=== PATIENT | male | born 1960 | race Caucasian/White ===

== ENCOUNTER 2019-03-24 21:17 | Inpatient (IN) | payer OTHER ==
--- NOTE | 2019-03-24 22:05 | PDOC ---
Attending Attestation - Resident Resident Name: SofiyaAna - ED Attending Attestation I have performed the following: I have examined & evaluated the patient, The case was reviewed & discussed with the resident, I agree w/resident's findings & plan - HPI HPI: 03/25/19 01:28 see resident hpi - Physicial Exam PE: 03/25/19 01:28 agree with resident exam - Medical Decision Making 03/25/19 01:28 58 yo male with history of dementia and increased confusion ct scan, ekg, labs plan for admit for further evaluation and observation
--- NOTE | 2019-03-24 22:25 | PDOC ---
History of Present Illness - General Chief Complaint: Altered Mental Status Stated Complaint: ALTERED MENTAL STATUS Time Seen by Provider: 03/24/19 21:56 History Source: Patient, Assisted Records Exam Limitations: Dementia - History of Present Illness Initial Comments: 03/24/19 22:30 58yo M with PMH of HTN, HLD, Dementia, Rib Fractures [facility] from [facility] for Independent and Assisted Living for AMS. Per note, patient is usually forgetful but has been more forgetful today. Patient states that he does not know where he is, why he is here and says that no one is answering his questions. Patient was provided answers as to why he is here but continues to ask, forgetting the answers to the questions. He denies headache, abdominal pain , n/v/d, changes in vision, back pain. PMD: Delmis PMH: see hpi PSH: L hip replacement 2008, Schatzki's Ring balloon 2014, Meds: Amlodipine 5mg, Aricept 10mg, Carvadilol 6.25mig BID, atorvastatin 40mg, lisinopril 10mg Allergies: nkda 03/25/19 01:35 Past History - Past Medical History Allergies/Adverse Reactions: Allergies Allergy/AdvReac Type Severity Reaction Status Date / Time No Known Allergies Allergy Verified 03/25/19 02:55 Home Medications: Ambulatory Orders Amlodipine Besylate [Norvasc -] 5 mg PO DAILY 03/25/19 Atorvastatin Ca [Lipitor] 40 mg PO HS 03/25/19 Carvedilol 6.25 mg PO BID 03/25/19 Donepezil HCl [Aricept] 10 mg PO DAILY 03/25/19 Lisinopril 10 mg PO DAILY 03/25/19 Review of Systems - Review of Systems Constitutional: No: Chills, Fever HEENTM: No: Symptoms Reported Respiratory: No: Cough, Shortness of Breath Cardiac (ROS): No: Chest Pain ABD/GI: No: Symptoms Reported, Nausea, Vomiting : No: Symptoms Reported Musculoskeletal: No: Symptoms Reported Integumentary: No: Symptoms Reported Neurological: No: Symptoms reported *Physical Exam - Physical Exam General Appearance: Yes: Nourished, Appropriately Dressed. No: Apparent Distress HEENT: positive: EOMI, NEIL, Normal ENT Inspection, Other (poor dentition) Neck: positive: Trachea midline, Supple. negative: Carotid bruit, Lymphadenopathy (R), Lymphadenopathy (L) Respiratory/Chest: positive: Lungs Clear, Normal Breath Sounds. negative: Crackles, Rales, Rhonchi, Stridor, Wheezing Cardiovascular: positive: Regular Rhythm, Regular Rate, S1, S2. negative: Edema , JVD, Murmur Vascular Pulses: Dorsalis-Pedis (R): 2+, Doralis-Pedis (L): 2+ Gastrointestinal/Abdominal: positive: Normal Bowel Sounds, Soft. negative: Tender Musculoskeletal: negative: CVA Tenderness Extremity: positive: Normal Capillary Refill. negative: Swelling, Calf Tenderness, Erythema Integumentary: positive: Normal Color, Dry, Warm Neurologic: positive: sr risk management consultant II-XII NML intact, Alert, Normal Mood/Affect, Motor Strength 5/5, Other (normal gait. forgetful). negative: Fully Oriented (AOx2) ED Treatment Course - LABORATORY CBC & Chemistry Diagram: 03/25/19 18:30 03/24/19 22:54 - RADIOLOGY Radiology Studies Ordered: Category Date Time Status CHEST X-RAY PORTABLE* [RAD] Stat Radiology 03/24/19 21:57 Ordered Medical Decision Making - Medical Decision Making 03/24/19 23:39 58yo M with PMH of dementia, hth, hld presenting for acute onset of ams/ confusion. ddx includes but not limited to infection, cva/tia, encephalitis, meningitis, hypo/hyperglycemia, electrolyte abnormality, mass/malignancy, substance use, intracranial bleed, hydrocephalus. will order labs, ua, ucx, cxr, ekg, ct head. ct head does not show acute pathology. labs show leukocytosis otherwise wnl. ua negative for infection. ekg: nsr at 69bpm, pr 166, qtc 427. no manuel or depressions. twi avL. no prior sto compare to. no signs of acute ischemia. pt has profound short term memory loss. will admit pt for ams. accepted by hospitalist. Discharge - Discharge Information Problems reviewed: Yes Clinical Impression/Diagnosis: Altered mental state Condition: Improved - Admission Yes - Follow up/Referral - Patient Discharge Instructions - Post Discharge Activity
[2019-03-24 23:01] LABS: BASO % 1.3 % (0-2.0); EOS % 1.8 % (0-4.5); HEMATOCRIT 41.8 % (35.4-49); HEMOGLOBIN 13.8 GM/dL (11.7-16.9); LYMPH % 22.5 % (8-40); MCH 31.3 pg (25.7-33.7); MEAN CELL VOLUME 94.8 fl (80-96); MEAN PLT VOLUME 7.2 fl (7.5-11.1); MONO % 9.5 % (3.8-10.2); NEUT % 64.9 % (42.8-82.8); PLATELET COUNT 258 K/MM3 (134-434); RBC 4.41 M/mm3 (4.00-5.60); RDW 14.1 % (11.9-15.9); WHITE BLOOD COUNT 12.2 K/mm3 (4.0-10.0)
[2019-03-24 23:05] LABS: URINE APPEARANCE CLEAR; URINE BILIRUBIN NEGATIVE (NEGATIVE); URINE COLOR YELLOW; URINE GLUCOSE (UA) NEGATIVE (NEGATIVE); URINE KETONE NEGATIVE (NEGATIVE); URINE LEUK ESTERASE NEGATIVE (NEGATIVE); URINE NITRITE NEGATIVE (NEGATIVE); URINE PROTEIN NEGATIVE (NEGATIVE); URINE UROBILINOGEN 0.2 mg/dL (0.2-1.0)
[2019-03-24 23:14] LABS: INR 1.05 (0.83-1.09); PROTHROMBIN TIME (PATIENT) 12.4 SEC (9.7-13.0)
[2019-03-24 23:30] LABS: ALBUMIN 4.2 g/dl (3.4-5.0); BILIRUBIN,TOTAL 0.6 mg/dL (0.2-1); BLOOD UREA NITROGEN 9.8 mg/dL (7-18); CALCIUM 9.5 mg/dL (8.5-10.1); CREATININE 0.6 mg/dL (0.55-1.3); POTASSIUM 4.9 mmol/L (3.5-5.1); TOT PROT 7.6 g/dl (6.4-8.2)
--- NOTE | 2019-03-25 02:14 | PN ---
Teaching Attending Note Name of Resident: Richelle Riggs ATTENDING PHYSICIAN STATEMENT I saw and evaluated the patient. I reviewed the resident's note and discussed the case with the resident. I agree with the resident's findings and plan as documented. SUBJECTIVE: Patient is a 58 year old man with PMH of HTN, HLD, Dementia, Rib Fractures brought by EMS from [facility] for Independent and Assisted Living for AMS. Per note, patient is usually forgetful but has been more forgetful today. Patient states that he does not know where he is, why he is here and says that no one is answering his questions. Patient was provided answers as to why he is here but continues to ask, forgetting the answers to the questions. He denies headache, abdominal pain, nausea, vomiting, diarrhea, changes in vision and back pain. OBJECTIVE: HEENT: No Jaundice, eye redness or discharge, PERRLA, EOMI. Normocephalic, atraumatic. External ears are normal and hearing is grossly intact. No nasal discharge. Neck: Supple, nontender. No palpable adenopathy or thyromegaly. No JVD Chest: Good effort. Clear to auscultation and percussion. Heart: Regular. No S3, rub or murmur Abdomen: Not distended, soft, nontender and no HSM. No rebound or guarding. Normal bowel sounds. Ext: Peripheral pulses intact. No leg edema. Skin: Warm and dry. No petechiae, rash or ecchymosis. Neuro: Alert. Confused. Oriented to person. CN 2-12 grossly intact. Sensation grossly intact in all four extremities and DTR are symmetric. Psych: Appropriate mood and affect. Good insight. Abnormal Lab Results 03/24/19 03/24/19 03/24/19 22:54 22:54 23:00 WBC 12.2 H MPV 7.2 L Anion Gap 7 L Ur Specific [place] 1.009 L ASSESSMENT AND PLAN: 1. AMS - Cause unclear and head CT scan didnot show any acute abnormality. Has leucoytosis but no left shift or obvious source of infection. No acute abnormality on CXR. EKG shows NSR with t wave inversion in aVL and initial troponin is negative. No old EKG available for comparison. Will repeat EKG. He may also have acute delirium superimposed on dementia. Will get blood cultures, repeat CBC STAT and get a rectal temperature - will get a spinal tap if leukocytosis is worse or he becomes febrile. Consult neurology. Will continue comprehensive care for all of patients comorbid conditions including dementia. 2. Hypertension - Restart suitable outpatient antihypertensive drugs when clinically appropriate. Revise regimen to ensure [id number] excellent BP control and counseling psychologist patient on the injurious effects of uncontrolled hypertension. Nonpharmacologic measures to control hypertension like weight loss , salt restriction and exercise discussed. Importance of adherence to treatment regimen and attainment of normotension emphasized. 3. DVT prophylaxis - Lovenox 40 mg SQ q 24 hours. 4. Advance directives - Full code
--- NOTE | 2019-03-25 03:09 | HP ---
CHIEF COMPLAINT: PCP: Dr. Benites HISTORY OF PRESENT ILLNESS: 58 y/o/m from [facility] for independent and assisted living sent here via EMS for confusion. Patient is a poor historian, AAOx1 to self. Patient's repeatedly asking "Why am I here?" As per the [facility] the patient is not at baseline, there have been no incidences at [facility], no changes in medication. Of note his father recently and his estate was settled, patient seems to be concerned regarding this, repeatedly asking about his fathers will. Patient at one point mentioned "Just off me, I don't know why I'm dealing with this." When specifically asked about any SI/HI, he denies. ER course was notable for: (1) CT head - negative for acute pathology Recent Travel: none PAST MEDICAL HISTORY: HTN, HLD, dementia, Rib fractures PAST SURGICAL HISTORY: L-Hip replacement 2008, Schatzki Ring balloon 2014 Social History: Smoking: smokes 1 pack of cigarettes daily Alcohol: unknown Drugs: unknown Allergies No Known Allergies Allergy (Verified 03/25/19 02:55) HOME MEDICATIONS: REVIEW OF SYSTEMS Patient is a poor historian, denying all complaints. CONSTITUTIONAL: Absent: fever, chills, diaphoresis, generalized weakness, malaise, loss of appetite, weight change HEENT: Absent: rhinorrhea, nasal congestion, throat pain, throat swelling, difficulty swallowing, mouth swelling, ear pain, eye pain, visual changes CARDIOVASCULAR: Absent: chest pain, syncope, palpitations, irregular heart rate, lightheadedness , peripheral edema RESPIRATORY: Absent: cough, shortness of breath, dyspnea with exertion, orthopnea, wheezing, stridor, hemoptysis GASTROINTESTINAL: Absent: abdominal pain, abdominal distension, nausea, vomiting, diarrhea, constipation, melena, hematochezia GENITOURINARY: Absent: dysuria, frequency, urgency, hesitancy, hematuria, flank pain, genital pain MUSCULOSKELETAL: Absent: myalgia, arthralgia, joint swelling, back pain, neck pain SKIN: Absent: rash, itching, pallor HEMATOLOGIC/IMMUNOLOGIC: Absent: easy bleeding, easy bruising, lymphadenopathy, frequent infections ENDOCRINE: Absent: unexplained weight gain, unexplained weight loss, heat intolerance, cold intolerance NEUROLOGIC: Absent: headache, focal weakness or paresthesias, dizziness, unsteady gait, seizure, mental status changes, bladder or bowel incontinence PSYCHIATRIC: Absent: anxiety, depression, suicidal or homicidal ideation, hallucinations. PHYSICAL EXAMINATION Vital Signs - 24 hr 03/24/19 21:25 Temperature 98.2 F Pulse Rate 90 Respiratory 18 Rate Blood Pressure 145/64 O2 Sat by Pulse 97 Oximetry (%) GENERAL: Awake, alert, and fully oriented, in no acute distress. HEAD: Normal with no signs of trauma. 2 small 1cm nontender, mobile, hard bumps on posterior aspect of skull EYES: Pupils equal, round and reactive to light, extraocular movements intact, sclera anicteric, conjunctiva clear. No lid lag. EARS, NOSE, THROAT: Ears normal, nares patent, oropharynx clear without exudates. Dry mucous membranes. Poor oral dentition NECK: Normal range of motion, supple without lymphadenopathy, JVD, or masses. negative brudzinski sign LUNGS: Breath sounds equal, clear to auscultation bilaterally. No wheezes, and no crackles. No accessory muscle use. HEART: Regular rate and rhythm, normal S1 and S2 without murmur, rub or gallop. ABDOMEN: Soft, nontender, not distended, normoactive bowel sounds, no guarding, no rebound, no masses. MUSCULOSKELETAL: Normal range of motion at all joints. No bony deformities or tenderness. No CVA tenderness. UPPER EXTREMITIES: 2+ pulses, warm, well-perfused. No cyanosis. No clubbing. No peripheral edema. LOWER EXTREMITIES: 2+ pulses, warm, well-perfused. No calf tenderness. No peripheral edema. NEUROLOGICAL: Cranial nerves II-XII intact. Normal speech. AAOx1 (self), 5/5 strength upper and lower extremities. Normal sensation. PSYCHIATRIC: Confused SKIN: Warm, dry, normal turgor, no rashes or lesions noted, normal capillary refill. Laboratory Results - last 24 hr 03/24/19 03/24/19 03/24/19 22:54 22:54 22:54 WBC 12.2 H RBC 4.41 Hgb 13.8 Hct 41.8 MCV 94.8 MCH 31.3 MCHC 33.0 RDW 14.1 Plt Count 258 MPV 7.2 L Absolute Neuts (auto) 7.9 Neutrophils % 64.9 Lymphocytes % 22.5 Monocytes % 9.5 Eosinophils % 1.8 Basophils % 1.3 Nucleated RBC % 0 PT with INR INR Sodium 138 Potassium 4.9 Chloride 104 Carbon Dioxide 27 Anion Gap 7 L BUN 9.8 Creatinine 0.6 Est GFR (CKD-EPI)AfAm 126.66 Est GFR (CKD-EPI)NonAf 109.28 Random Glucose 84 Calcium 9.5 Total Bilirubin 0.6 AST 24 ALT 24 Alkaline Phosphatase 79 Troponin I < 0.02 Total Protein 7.6 Albumin 4.2 Urine Color Urine Appearance Urine pH Ur Specific [place] Urine Protein Urine Glucose (UA) Urine Ketones Urine Blood Urine Nitrite Urine Bilirubin Urine Urobilinogen Ur Leukocyte Esterase 03/24/19 03/24/19 22:54 23:00 WBC RBC Hgb Hct MCV MCH MCHC RDW Plt Count MPV Absolute Neuts (auto) Neutrophils % Lymphocytes % Monocytes % Eosinophils % Basophils % Nucleated RBC % PT with INR 12.40 INR 1.05 Sodium Potassium Chloride Carbon Dioxide Anion Gap BUN Creatinine Est GFR (CKD-EPI)AfAm Est GFR (CKD-EPI)NonAf Random Glucose Calcium Total Bilirubin AST ALT Alkaline Phosphatase Troponin I Total Protein Albumin Urine Color Yellow Urine Appearance Clear Urine pH 7.0 Ur Specific [place] 1.009 L Urine Protein Negative Urine Glucose (UA) Negative Urine Ketones Negative Urine Blood Negative Urine Nitrite Negative Urine Bilirubin Negative Urine Urobilinogen 0.2 Ur Leukocyte Esterase Negative ASSESSMENT/PLAN: 58 y/o/m from [facility] independent and assisted living sent here via EMS for confusion. As per [facility] independent and assisted living patient is not at baseline. 1)Acute Metabolic Encephalopathy - patient sent by [facility] for confusion, not at baseline -Neuro consulted -Pysch consulted -Consider progressive dementia vs. infectious cause vs delirium -Utox, TSH ordered for further evaluation -Patient placed on constant supervision due to agitation 2)Leukocytosis - WHC of 12.2, patient afebrile -repeat CBC -if equivocal or uptrending, consider LP for possible infectious etiology -follow cultures 3)Prophylaxis -SCDs 4)Disposition -admitted to med/surg Visit type - Emergency Visit Emergency Visit: Yes ED Registration Date: 03/25/19 Care time: The patient presented to the Emergency Department on the above date and was hospitalized for further evaluation of their emergent condition. - New Patient This patient is new to me today: Yes Date on this admission: 03/25/19 - Critical Care Critical Care patient: No ATTENDING PHYSICIAN STATEMENT I saw and evaluated the patient. I reviewed the resident's note and discussed the case with the resident. I agree with the resident's findings and plan as documented. SUBJECTIVE: OBJECTIVE: ASSESSMENT AND PLAN:
--- NOTE | 2019-03-25 08:38 | PN ---
Teaching Attending Note Name of Resident: Marie Abraham ATTENDING PHYSICIAN STATEMENT I saw and evaluated the patient. I reviewed the resident's note and discussed the case with the resident. I agree with the resident's findings and plan as documented. SUBJECTIVE: Patient is comfortable with no acute distress, oriented to self only, does not know where he is. Sitter at bed side since patient is a wanderer at baseline. OBJECTIVE: Vital Signs Temperature 98.2 F 03/24/19 21:25 Pulse Rate 90 03/24/19 21:25 Respiratory Rate 18 03/24/19 21:25 Blood Pressure 145/64 03/24/19 21:25 O2 Sat by Pulse Oximetry (%) 97 03/24/19 21:25 GENERAL: The patient is awake, oriented to self only. in no acute distress. HEAD: Normal with no signs of trauma. EYES: PERRL, extraocular movements intact, sclera anicteric, conjunctiva clear. ENT: Ears normal, oropharynx clear without exudates, moist mucous membranes. NECK: Trachea midline, full range of motion, supple. LUNGS: Breath sounds equal, clear to auscultation bilaterally, no wheezes, no crackles, no accessory muscle use. HEART: Regular rate and rhythm, S1, S2 without murmur, rub or gallop. ABDOMEN: Soft, nontender, nondistended, normoactive bowel sounds, no guarding, no rebound, no hepatosplenomegaly, no masses. EXTREMITIES: 2+ pulses, warm, well-perfused, no edema. NEUROLOGICAL: Cranial nerves II through XII grossly intact. Normal speech, gait not observed. PSYCH: Normal mood, normal affect. SKIN: Warm, dry, normal turgor, no rashes or lesions noted CBCD WBC 12.2 K/mm3 (4.0-10.0) H 03/24/19 22:54 RBC 4.41 M/mm3 (4.00-5.60) 03/24/19 22:54 Hgb 13.8 GM/dL (11.7-16.9) 03/24/19 22:54 Hct 41.8 % (35.4-49) 03/24/19 22:54 MCV 94.8 fl (80-96) 03/24/19 22:54 MCHC 33.0 g/dl (32.0-35.9) 03/24/19 22:54 RDW 14.1 % (11.9-15.9) 03/24/19 22:54 Plt Count 258 K/MM3 (134-434) 03/24/19 22:54 MPV 7.2 fl (7.5-11.1) L 03/24/19 22:54 CMP Sodium 138 mmol/L (136-145) 03/24/19 22:54 Potassium 4.9 mmol/L (3.5-5.1) 03/24/19 22:54 Chloride 104 mmol/L (98-107) 03/24/19 22:54 Carbon Dioxide 27 mmol/L (21-32) 03/24/19 22:54 Anion Gap 7 MMOL/L (8-16) L 03/24/19 22:54 BUN 9.8 mg/dL (7-18) 03/24/19 22:54 Creatinine 0.6 mg/dL (0.55-1.3) 03/24/19 22:54 Random Glucose 84 mg/dL (74-106) 03/24/19 22:54 Calcium 9.5 mg/dL (8.5-10.1) 03/24/19 22:54 Total Bilirubin 0.6 mg/dL (0.2-1) 03/24/19 22:54 AST 24 U/L (15-37) 03/24/19 22:54 ALT 24 U/L (13-61) 03/24/19 22:54 Alkaline Phosphatase 79 U/L (45-117) 03/24/19 22:54 Total Protein 7.6 g/dl (6.4-8.2) 03/24/19 22:54 Albumin 4.2 g/dl (3.4-5.0) 03/24/19 22:54 CARDIAC ENZYMES Troponin I < 0.02 ng/ml (0.00-0.05) 03/24/19 22:54 Urine Test Results Urine Color Yellow 03/24/19 23:00 Urine Appearance Clear 03/24/19 23:00 Urine pH 7.0 (5.0-8.0) 03/24/19 23:00 Ur Specific [place] 1.009 (1.010-1.035) L 03/24/19 23:00 Urine Protein Negative (NEGATIVE) 03/24/19 23:00 Urine Glucose (UA) Negative (NEGATIVE) 03/24/19 23:00 Urine Ketones Negative (NEGATIVE) 03/24/19 23:00 Urine Blood Negative (NEGATIVE) 03/24/19 23:00 Urine Nitrite Negative (NEGATIVE) 03/24/19 23:00 Urine Bilirubin Negative (NEGATIVE) 03/24/19 23:00 Ur Leukocyte Esterase Negative (NEGATIVE) 03/24/19 23:00 Current Medications Generic Name Dose Route Start Last Admin Trade Name Lorraine PRN Reason Stop Dose Admin Amlodipine Besylate 5 mg 03/25/19 10:00 Norvasc - PO DAILY ERUM Atorvastatin Calcium 40 mg 03/25/19 22:00 Lipitor - PO HS [facility] Carvedilol 6.25 mg 03/25/19 10:00 Coreg - PO BID ERUM Donepezil HCl 10 mg 03/25/19 10:00 Aricept - PO DAILY ERUM Lisinopril 10 mg 03/25/19 10:00 Prinivil PO DAILY [facility] Home Medications Medication Instructions Recorded Amlodipine Besylate [Norvasc -] 5 mg PO DAILY 03/25/19 Atorvastatin Ca [Lipitor] 40 mg PO HS 03/25/19 Carvedilol 6.25 mg PO BID 03/25/19 Donepezil HCl [Aricept] 10 mg PO DAILY 03/25/19 Lisinopril 10 mg PO DAILY 03/25/19 CXR: no acute pathology CT of the head without contrast: negative ASSESSMENT AND PLAN: Patient is a 58 year old man with PMHx of HTN, HLD, Dementia, Rib Fractures brought by EMS from [facility] for Independent and Assisted Living for AMS. # Acute over chronic change of mental status with hx of Dementia r/o sepsis, dementia w/u b12,folic acid, ( NL mcv, normal h/h), tsh, # Acute leukocytosis : septic w/u , UA is negative #HTN: continue home norvasc #HLD;continue home lipitor #Dementia: on arisept continue DVT px:Lovenox sitter at bedside. patient is a wanderer. back to [facility] in [place] once seen by neuro
[2019-03-25] MEDS: DONEPEZIL HCL 10 MG TABLET (FP) PO SCH (10:58)
[2019-03-25] MEDS: ENOXAPARIN NA (PORCINE) 40 MG/0.4 ML DISP.SYRIN SQ SCH (10:59)
[2019-03-25] MEDS: CARVEDILOL 6.25 MG TABLET (FP) PO SCH ×2 (10:59→22:31)
[2019-03-25] MEDS: amLODIPine BESYLATE 5 MG TABLET (FP) PO SCH (11:08)
[2019-03-25] MEDS: LISINOPRIL 10 MG TABLET (FP) PO SCH (11:08)
--- NOTE | 2019-03-25 12:25 | CON.PSY ---
Psychiatry Consult Chief Complaint: Patient with Dementia admitted from a HOME. Seen for Psych eval. Symptoms: reports: Memory Impairment - Previous Psychiatric Treatment Outpatient: None Inpatient: None - Previous Substance Abuse Treatment Outpatient: None Inpatient: None - Current Medications Current Medications: Active Medications Amlodipine Besylate (Norvasc -) 5 mg PO DAILY [facility] Last Admin: 03/25/19 11:08 Dose: 5 mg Atorvastatin Calcium (Lipitor -) [address] [facility] Carvedilol (Coreg -) 6.25 mg PO BID [facility] Last Admin: 03/25/19 10:59 Dose: 6.25 mg Donepezil HCl (Aricept -) 10 mg PO DAILY [facility] Last Admin: 03/25/19 10:58 Dose: 10 mg Enoxaparin Sodium (Lovenox -) 40 mg SQ DAILY [facility] Last Admin: 03/25/19 10:59 Dose: 40 mg Lisinopril (Prinivil) 10 mg PO DAILY [facility] Last Admin: 03/25/19 11:08 Dose: 10 mg - Allergies Allergies: Allergies Allergy/AdvReac Type Severity Reaction Status Date / Time No Known Allergies Allergy Verified 03/25/19 02:55 - Current Living Status Usual Living Arrangement: Jail - Current Mental Status Evaluation Appearance: Disheveled Attitude: Guarded - Affect Affect: Constrictive Appropriateness: Not Appropriate - Mood Mood: Euthymic - Speech/Language Expressive: Delayed - Psychomotor Activity Psychomotor Activity: Slowed - Thought Process Thought Process: Circumstantial - Thought Content Hallucinations: Absent Delusions: Absent - Self Perception Self Perception: No Impairment - Cognition Attention: Diminished Memory, Immediate Recall: Impaired Memory, Short Term: 1/3 Memory, Remote with Promptin/3 - Concentration Serial Sevens Intact: No Simple Calculations Intact: No - Abstraction Proverb Interpretation: Impaired Judgement: Minimally Impaired - Insight Insight: Impaired - Impulse Control Impulse Control: Moderately Impaired - Suicidal Ideation Suicidal Ideation: No - Homicidal Ideation Homicidal Ideation: No Assessment/Plan 1) No Psych mEds. 2) discharge back to [facility] when medically stable.
--- NOTE | 2019-03-25 14:07 | EKG ---
Test Reason : Blood Pressure : / mmHG Vent. Rate : 068 BPM Atrial Rate : 068 BPM P-R Int : 166 ms QRS Dur : 088 ms QT Int : 402 ms P-R-T Axes : 067 -61 071 degrees QTc Int : 427 ms POOR DATA QUALITY, INTERPRETATION MAY BE ADVERSELY AFFECTED NORMAL SINUS RHYTHM LEFT ANTERIOR FASCICULAR BLOCK ABNORMAL ECG NO PREVIOUS ECGS AVAILABLE Confirmed by MICHELLE FARR, BUSTER ([id number]) on 03/25/2019 2:07:03 PM Referred By: Confirmed By:BUSTER MARTINEZ MD
--- NOTE | 2019-03-25 16:08 | PN ---
Physical Exam: SUBJECTIVE: Patient seen and examined OBJECTIVE: Vital Signs Period Temp Pulse Resp BP Sys/Knowles Pulse Ox Last 24 Hr 98.2 F-98.9 F 58-90 15-18 82-145/41-74 97 GENERAL: The patient is awake, alert, and fully oriented, in no acute distress. HEAD: Normal with no signs of trauma. EYES: PERRL, extraocular movements intact, sclera anicteric, conjunctiva clear. No ptosis. ENT: Ears normal, nares patent, oropharynx clear without exudates, moist mucous membranes. NECK: Trachea midline, full range of motion, supple. LUNGS: Breath sounds equal, clear to auscultation bilaterally, no wheezes, no crackles, no accessory muscle use. HEART: Regular rate and rhythm, S1, S2 without murmur, rub or gallop. ABDOMEN: Soft, nontender, nondistended, normoactive bowel sounds, no guarding, no rebound, no hepatosplenomegaly, no masses. EXTREMITIES: 2+ pulses, warm, well-perfused, no edema. NEUROLOGICAL: Cranial nerves II through XII grossly intact. Normal speech, gait not observed. PSYCH: Normal mood, normal affect. SKIN: Warm, dry, normal turgor, no rashes or lesions noted Laboratory Results - last 24 hr 03/24/19 03/24/19 03/24/19 22:54 22:54 22:54 WBC 12.2 H RBC 4.41 Hgb 13.8 Hct 41.8 MCV 94.8 MCH 31.3 MCHC 33.0 RDW 14.1 Plt Count 258 MPV 7.2 L Absolute Neuts (auto) 7.9 Neutrophils % 64.9 Lymphocytes % 22.5 Monocytes % 9.5 Eosinophils % 1.8 Basophils % 1.3 Nucleated RBC % 0 PT with INR INR Sodium 138 Potassium 4.9 Chloride 104 Carbon Dioxide 27 Anion Gap 7 L BUN 9.8 Creatinine 0.6 Est GFR (CKD-EPI)AfAm 126.66 Est GFR (CKD-EPI)NonAf 109.28 Random Glucose 84 Calcium 9.5 Total Bilirubin 0.6 AST 24 ALT 24 Alkaline Phosphatase 79 Troponin I < 0.02 Total Protein 7.6 Albumin 4.2 Urine Color Urine Appearance Urine pH Ur Specific [place] Urine Protein Urine Glucose (UA) Urine Ketones Urine Blood Urine Nitrite Urine Bilirubin Urine Urobilinogen Ur Leukocyte Esterase 03/24/19 03/24/19 22:54 23:00 WBC RBC Hgb Hct MCV MCH MCHC RDW Plt Count MPV Absolute Neuts (auto) Neutrophils % Lymphocytes % Monocytes % Eosinophils % Basophils % Nucleated RBC % PT with INR 12.40 INR 1.05 Sodium Potassium Chloride Carbon Dioxide Anion Gap BUN Creatinine Est GFR (CKD-EPI)AfAm Est GFR (CKD-EPI)NonAf Random Glucose Calcium Total Bilirubin AST ALT Alkaline Phosphatase Troponin I Total Protein Albumin Urine Color Yellow Urine Appearance Clear Urine pH 7.0 Ur Specific [place] 1.009 L Urine Protein Negative Urine Glucose (UA) Negative Urine Ketones Negative Urine Blood Negative Urine Nitrite Negative Urine Bilirubin Negative Urine Urobilinogen 0.2 Ur Leukocyte Esterase Negative Active Medications Generic Name Dose Route Start Last Admin Trade Name Freq PRN Reason Stop Dose Admin Amlodipine Besylate 5 mg 03/25/19 10:00 03/25/19 11:08 Norvasc - PO 5 mg DAILY ERUM Administration Atorvastatin Calcium 40 mg 03/25/19 22:00 Lipitor - PO HS ERUM Carvedilol 6.25 mg 03/25/19 10:00 03/25/19 10:59 Coreg - PO 6.25 mg BID ERUM Administration Donepezil HCl 10 mg 03/25/19 10:00 03/25/19 10:58 Aricept - PO 10 mg DAILY ERUM Administration Enoxaparin Sodium 40 mg 03/25/19 10:00 03/25/19 10:59 Lovenox - SQ 40 mg DAILY ERUM Administration Lisinopril 10 mg 03/25/19 10:00 03/25/19 11:08 Prinivil PO 10 mg DAILY ERUM Administration ASSESSMENT/PLAN: Visit type - Emergency Visit Emergency Visit: Yes ED Registration Date: 03/25/19 Care time: The patient presented to the Emergency Department on the above date and was hospitalized for further evaluation of their emergent condition. - New Patient This patient is new to me today: Yes Date on this admission: 03/25/19 - Critical Care Critical Care patient: No - Discharge Referral Referred to [facility] No ATTENDING PHYSICIAN STATEMENT I saw and evaluated the patient. I reviewed the resident's note and discussed the case with the resident. I agree with the resident's findings and plan as documented. SUBJECTIVE: OBJECTIVE: ASSESSMENT AND PLAN:
[2019-03-25 19:26] LABS: HEMATOCRIT 41.5 % (35.4-49); MCHC 33.6 g/dl (32.0-35.9); MEAN CELL VOLUME 95.1 fl (80-96); MEAN PLT VOLUME 7.7 fl (7.5-11.1); PLATELET COUNT 257 K/MM3 (134-434); RBC 4.36 M/mm3 (4.00-5.60); RDW 14.2 % (11.9-15.9); WHITE BLOOD COUNT 8.8 K/mm3 (4.0-10.0)
[2019-03-25 20:00] VITALS: BMI 17.4
[2019-03-25 20:11] LABS: BLOOD UREA NITROGEN 16.6 mg/dL (7-18); CALCIUM 9.2 mg/dL (8.5-10.1); CREATININE 0.7 mg/dL (0.55-1.3); POTASSIUM 4.1 mmol/L (3.5-5.1)
[2019-03-25 21:48] LABS: COCAINE, UR NEGATIVE ng/ml (CUTOFF=300); METHADONE, UR NEGATIVE ng/ml (CUTOFF=300); OPIATES, URI NEGATIVE ng/ml (CUTOFF=300); PHENCYCLIDINE,URINE NEGATIVE ng/ml (CUTOFF=25); URINE AMPHETAMINES NEGATIVE ng/ml (CUTOFF=500); URINE BARBITURATES NEGATIVE ng/ml (CUTOFF=200); URINE BENZODIAZEPINES NEGATIVE ng/ml (CUTOFF=200)
[2019-03-25] MEDS ORDERED: ATORVASTATIN CA 40 MG TABLET (FP) PO SCH (22:00)
--- NOTE | 2019-03-25 23:30 | CON.NEURO ---
Consult Consult Specialty:: NEUROLOGY-JIAN FARR - History of Present Illness History of Present Illness: 58 y/o/m from [facility] for independent and assisted living sent here via EMS for confusion. Patient is a poor historian, AAOx1 to self. Patient's repeatedly asking "Why am I here?" As per the half-way the patient is not at baseline, there have been no incidences at half-way, no changes in medication. Of note his father recently and his estate was settled, patient seems to be concerned regarding this, repeatedly asking about his fathers will. Patient at one point mentioned "Just off me, I don't know why I'm dealing with this." When specifically asked about any SI/HI, he denies. ER course was notable for: (1) CT head - negative for acute pathology Pt. reports he feels better, denies all complaints but appears unaware of his own medical condition. - Alcohol/Substance Use Hx Alcohol Use: No - Smoking History Smoking history: Current some day smoker Have you smoked in the past 12 months: Yes Aproximately how many cigarettes per day: 2 - Social History Usual Living Arrangement: Assisted Home Medications - Allergies Allergies/Adverse Reactions: Allergies Allergy/AdvReac Type Severity Reaction Status Date / Time No Known Allergies Allergy Verified 03/25/19 02:55 - Home Medications Home Medications: Ambulatory Orders Amlodipine Besylate [Norvasc -] 5 mg PO DAILY 03/25/19 Atorvastatin Ca [Lipitor] 40 mg PO HS 03/25/19 Carvedilol 6.25 mg PO BID 03/25/19 Donepezil HCl [Aricept] 10 mg PO DAILY 03/25/19 Lisinopril 10 mg PO DAILY 03/25/19 Physical Exam-Neuro Vital Signs: Vital Signs Temperature 97.3 F L 03/25/19 18:00 Pulse Rate 51 L 03/25/19 21:26 Respiratory Rate 18 03/25/19 21:26 Blood Pressure 110/64 03/25/19 21:26 O2 Sat by Pulse Oximetry (%) 97 03/24/19 21:25 Labs: CBC, BMP 03/25/19 18:30 03/25/19 18:30 INR, PTT INR 1.05 (0.83-1.09) 03/24/19 22:54 - Neuro Exam Level Of Consciousness: Yes: Alert, Oriented to Person, Oriented to Place Eyes: Yes: NEIL Speech: Other (sparse, fluent) Mini Mental Exam: Not oriented to time/month/year. Impaired momory/att/conc. Cranial Nerves II-XII Intact: No (right diminished NLF?? old) DTR's: 2+ Left Bicep, 2+ Right Bicep, 2+ Left Tricep, 2+ Right Tricep, 2+ Left Brachioradialis, 2+ Right Brachioradialis, 2+ Right Achilles (bilat knees-3+) Babinski: Absent Response to light touch: Normal Response to pain prick: Normal (unable to rest of modalities) Motor Strength: 5/5: Left Arm, Right Arm, Left Leg, Right Leg Gait: Deferred Assessment/Plan Pt. with dementia, likely delirium in addition that appears to be resolving. ?? 2/2 sepsis. His exam appears non-focal except for ?/ old right diminished NLF. If no inf/metrabolic etiology found for AMS would obtain MRI brain. Thank you, Carlos Manuel Anaya MD
[2019-03-26 06:57] VITALS: TEMP 97.7
--- NOTE | 2019-03-26 09:39 | DS ---
Physical Exam: SUBJECTIVE: Patient seen and examined OBJECTIVE: Vital Signs Period Temp Pulse Resp BP Sys/Knowles Pulse Ox Last 24 Hr 97.3 F-98.9 F 51-63 16-20 82-126/41-74 97 PHYSICAL EXAM GENERAL: The patient is awake, alert, and fully oriented, in no acute distress. HEAD: Normal with no signs of trauma. EYES: PERRL, extraocular movements intact, sclera anicteric, conjunctiva clear. ENT: Ears normal, nares patent, oropharynx clear without exudates, moist mucous membranes. NECK: Trachea midline, full range of motion, supple. LUNGS: Breath sounds equal, clear to auscultation bilaterally, no wheezes, no crackles, no accessory muscle use. HEART: Regular rate and rhythm, S1, S2 without murmur, rub or gallop. ABDOMEN: Soft, nontender, nondistended, normoactive bowel sounds, no guarding, no rebound, no hepatosplenomegaly, no masses. EXTREMITIES: 2+ pulses, warm, well-perfused, no edema. NEUROLOGICAL: Cranial nerves II through XII grossly intact. Normal speech, gait not observed. PSYCH: Normal mood, normal affect. SKIN: Warm, dry, normal turgor, no rashes or lesions noted. LABS Laboratory Results - last 24 hr 03/25/19 03/25/19 03/25/19 18:30 18:30 21:00 WBC 8.8 RBC 4.36 Hgb 14.0 Hct 41.5 MCV 95.1 MCH 32.0 MCHC 33.6 RDW 14.2 Plt Count 257 MPV 7.7 Sodium 139 Potassium 4.1 Chloride 104 Carbon Dioxide 30 Anion Gap 5 L BUN 16.6 Creatinine 0.7 Est GFR (CKD-EPI)AfAm 118.88 Est GFR (CKD-EPI)NonAf 102.57 Random Glucose 83 Calcium 9.2 TSH 1.39 Opiates Screen Negative Methadone Screen Negative Barbiturate Screen Negative Phencyclidine Screen Negative Ur Amphetamines Screen Negative MDMA (Ecstasy) Screen Negative Benzodiazepines Screen Negative Cocaine Screen Negative U Marijuana (THC) Screen Negative HOSPITAL COURSE: Date of Admission:03/25/19 Date of Discharge: 03/26/19 Minutes to complete discharge: 40 Discharge Summary Reason For Visit: CONFUSION, ALTERED MENTAL STATUS Condition: Improved - Instructions Diet, Activity, Other Instructions: You were in the hospital because you were found at home, confused, and not in your usual state of health. While in the hospital you had some labs and imaging done which were unremarkable. In the morning when you were re-assessed you had returned to your baseline. There were no other medical problems and we discharged you back to the assisted living facility where you live. Please continue to take all of your home medications as prescribed before you came to the hospital. Please follow up with your primary care doctor, Dr. Benites, within 1 week of discharge from the hospital. Please follow up with a psychiatrist in 1 week , if you do not have one we referred you to Dr. Ashton, the psychiatrist who saw you in the hospital. If you experience confusions, headache, dizziness, or falls, please return to the Emergency Department immediately. Referrals: Germán Benites MD [Primary Care Provider] - 1 Week Garrett Ashton MD [Staff Physician] - 1 Week Disposition: [facility] - Home Medications Comprehensive Discharge Medication List: Ambulatory Orders Amlodipine Besylate [Norvasc -] 5 mg PO DAILY 03/25/19 Atorvastatin Ca [Lipitor] 40 mg PO HS 03/25/19 Carvedilol 6.25 mg PO BID 03/25/19 Donepezil HCl [Aricept] 10 mg PO DAILY 03/25/19 Lisinopril 10 mg PO DAILY 03/25/19 This patient is new to me today: No Emergency Visit: Yes ED Registration Date: 03/25/19 Care time: The patient presented to the Emergency Department on the above date and was hospitalized for further evaluation of their emergent condition. Critical Care patient: No - Discharge Referral Referred to [facility] No ATTENDING PHYSICIAN STATEMENT I saw and evaluated the patient. I reviewed the resident's note and discussed the case with the resident. I agree with the resident's findings and plan as documented. SUBJECTIVE: OBJECTIVE: ASSESSMENT AND PLAN:
[2019-03-26] MEDS: amLODIPine BESYLATE 5 MG TABLET (FP) PO SCH (10:46)
[2019-03-26] MEDS: LISINOPRIL 10 MG TABLET (FP) PO SCH (10:46)
[2019-03-26] MEDS: CARVEDILOL 6.25 MG TABLET (FP) PO SCH (10:46)
[2019-03-26] MEDS: DONEPEZIL HCL 10 MG TABLET (FP) PO SCH (10:46)
[2019-03-26] MEDS: ENOXAPARIN NA (PORCINE) 40 MG/0.4 ML DISP.SYRIN SQ SCH (10:46)
[2019-03-26 10:51] VITALS: BP 127/71; PULSE 55
--- NOTE | 2019-03-26 18:17 | PN ---
Teaching Attending Note Name of Resident: Marie Abraham ATTENDING PHYSICIAN STATEMENT I saw and evaluated the patient. I reviewed the resident's note and discussed the case with the resident. I agree with the resident's findings and plan as documented. SUBJECTIVE: Patient is asking for the brother , wants to go back to his house, asked me to call his brother and ststed why am i here and what am i doing here. OBJECTIVE: Vital Signs Temperature 97.7 F 03/26/19 06:00 Pulse Rate 55 L 03/26/19 10:50 Respiratory Rate 18 03/26/19 06:00 Blood Pressure 127/71 03/26/19 10:50 O2 Sat by Pulse Oximetry (%) 97 03/26/19 09:00 GENERAL: The patient is awake, oriented to self only. in no acute distress. HEAD: Normal with no signs of trauma. EYES: PERRL, extraocular movements intact, sclera anicteric, conjunctiva clear. ENT: Ears normal, oropharynx clear without exudates, moist mucous membranes. NECK: Trachea midline, full range of motion, supple. LUNGS: Breath sounds equal, clear to auscultation bilaterally, no wheezes, no crackles, no accessory muscle use. HEART: Regular rate and rhythm, S1, S2 without murmur, rub or gallop. ABDOMEN: Soft, nontender, nondistended, normoactive bowel sounds, no guarding, no rebound, no hepatosplenomegaly, no masses. EXTREMITIES: 2+ pulses, warm, well-perfused, no edema. NEUROLOGICAL: Cranial nerves II through XII grossly intact. Normal speech, gait is stable . PSYCH: anxious that he is out of his known environment. SKIN: Warm, dry, normal turgor, no rashes or lesions noted CBCD WBC 8.8 K/mm3 (4.0-10.0) 03/25/19 18:30 RBC 4.36 M/mm3 (4.00-5.60) 03/25/19 18:30 Hgb 14.0 GM/dL (11.7-16.9) 03/25/19 18:30 Hct 41.5 % (35.4-49) 03/25/19 18:30 MCV 95.1 fl (80-96) 03/25/19 18:30 MCHC 33.6 g/dl (32.0-35.9) 03/25/19 18:30 RDW 14.2 % (11.9-15.9) 03/25/19 18:30 Plt Count 257 K/MM3 (134-434) 03/25/19 18:30 MPV 7.7 fl (7.5-11.1) 03/25/19 18:30 CMP Sodium 139 mmol/L (136-145) 03/25/19 18:30 Potassium 4.1 mmol/L (3.5-5.1) 03/25/19 18:30 Chloride 104 mmol/L (98-107) 03/25/19 18:30 Carbon Dioxide 30 mmol/L (21-32) 03/25/19 18:30 Anion Gap 5 MMOL/L (8-16) L 03/25/19 18:30 BUN 16.6 mg/dL (7-18) 03/25/19 18:30 Creatinine 0.7 mg/dL (0.55-1.3) 03/25/19 18:30 Random Glucose 83 mg/dL (74-106) 03/25/19 18:30 Calcium 9.2 mg/dL (8.5-10.1) 03/25/19 18:30 Total Bilirubin 0.6 mg/dL (0.2-1) 03/24/19 22:54 AST 24 U/L (15-37) 03/24/19 22:54 ALT 24 U/L (13-61) 03/24/19 22:54 Alkaline Phosphatase 79 U/L (45-117) 03/24/19 22:54 Total Protein 7.6 g/dl (6.4-8.2) 03/24/19 22:54 Albumin 4.2 g/dl (3.4-5.0) 03/24/19 22:54 CARDIAC ENZYMES Troponin I < 0.02 ng/ml (0.00-0.05) 03/24/19 22:54 Home Medications Medication Instructions Recorded Amlodipine Besylate [Norvasc -] 5 mg PO DAILY 03/25/19 Atorvastatin Ca [Lipitor] 40 mg PO HS 03/25/19 Carvedilol 6.25 mg PO BID 03/25/19 Donepezil HCl [Aricept] 10 mg PO DAILY 03/25/19 Lisinopril 10 mg PO DAILY 03/25/19 CXR: no acute pathology CT of the head without contrast: negative ASSESSMENT AND PLAN: Patient is a 58 year old man with PMHx of HTN, HLD, Dementia, Rib Fractures brought by EMS from [facility] for AMS. # Acute over chronic change of mental status with hx of Dementia , sepsis w/u is negative, tsh is normal , # Acute leukocytosis : septic w/u is negative , UA is negative #HTN: continue home norvasc #HLD;continue home lipitor #Dementia: on arisept continue DVT px:Lovenox sitter at bedside. patient is a wanderer. back to [facility] today, discussed with the patient's brother.
== END 2019-03-26 11:07 | DRG 757 ==
LOC: JER 21:17 → JERBED 03-25 01:31 → J5S 03-25 11:47
PROVIDERS: ADMIT Internal Medicine; ATTEND Internal Medicine
DX: F03.90 Unspecified dementia, unspecified severity, without behavioral disturbance, psychotic disturbance, mood disturbance, and anxiety (principal); I10 Essential (primary) hypertension; E78.5 Hyperlipidemia, unspecified; S22.39XA Fracture of one rib, unspecified side, initial encounter for closed fracture; Z96.642 Presence of left artificial hip joint; G93.41 Metabolic encephalopathy; D72.829 Elevated white blood cell count, unspecified
CPT/HCPCS: 36415; 70450-TC; 71045-TC-FY; 80048; 80053; 80307; 81003; 84443; 84484; 85025; 85027; 85610; 87040; 87086; 93005; 93010; 99284-25